=== PATIENT | female | born 1970 ===

== ENCOUNTER 2016-06-15 18:48 | Emergency (ER) | payer OTHER ==
[2016-06-15 18:54] VITALS: RESP 18; TEMP 98.1
--- NOTE | 2016-06-15 20:29 | C.PDOC ---
History Of Present Illness Patient is a 46 year old female who presents to the ER with a complaint of a constant non-productive cough that worsens at night. Patient also reports having a subjective fever, body ache, and sore throat. Patient states the cough is making the sore throat worse. Denies any nausea, vomiting, or diarrhea. Time Seen by Provider: 06/15/16 19:12 Chief Complaint (Nursing): Flu-like Symptoms History Per: Patient History/Exam Limitations: no limitations Onset/Duration Of Symptoms: Days (3) Current Symptoms Are (Timing): Still Present Location Of Pain: Throat, Diffuse Myalgias Associated Symptoms: Fever (Subjective), Sore Throat, Cough (Non-productive). denies: Nausea, Vomiting, Diarrhea Past Medical History Reviewed: Historical Data, Nursing Documentation, Vital Signs Vital Signs: Last Vital Signs Temp 98.1 F 06/15/16 18:50 Pulse 75 06/15/16 20:35 Resp 18 06/15/16 20:35 BP 122/71 06/15/16 20:35 Pulse Ox 100 06/15/16 21:16 Family History: States: Unknown Family Hx - Social History Hx Alcohol Use: No Hx Substance Use: No - Immunization History Hx Tetanus Toxoid Vaccination: Yes Hx Influenza Vaccination: Yes Hx Pneumococcal Vaccination: No Review Of Systems Constitutional: Positive for: Fever ENT: Positive for: Other (Sore throat) Respiratory: Positive for: Cough (non-productive) Gastrointestinal: Negative for: Nausea, Vomiting, Diarrhea Musculoskeletal: Positive for: Other (Body aches) Physical Exam - Physical Exam Appears: Well, Non-toxic Skin: Normal Color, Warm, Dry, No Rash Head: Atraumatic, Normacephalic Eye(s): bilateral: Normal Inspection Ear(s): Bilateral: Normal Oral Mucosa: Moist Tongue: Normal Appearing Throat: Normal Neck: Normal, Supple Chest: Symmetrical Cardiovascular: Rhythm Regular, No Friction Rub, No Murmur Respiratory: Normal Breath Sounds, No Rales, No Rhonchi, No Stridor, No Wheezing Gastrointestinal/Abdominal: Soft, No Tenderness Back: Normal Inspection, No CVA Tenderness Extremity: Normal ROM, No Swelling Neurological/Psych: Oriented x3, Normal Speech, Normal Cognition Gait: Steady ED Course And Treatment O2 Sat by Pulse Oximetry: 100 (Room air) Pulse Ox Interpretation: Normal Medical Decision Making Medical Decision Making: Appears well, will be discharged home. Disposition - Disposition Referrals: [facility] at [facility] [Outside] Disposition: HOME/ ROUTINE Disposition Time: 20:27 Condition: GOOD Additional Instructions: Follow up with the medical doctor within 1-2 days without fail. return if worsened. Prescriptions: Loratadine [Claritin] 10 mg PO DAILY #10 tab Ibuprofen [Motrin] 600 mg PO TID #21 tab Benzonatate [Tessalon Perles] 200 mg PO TID PRN #21 sgl PRN Reason: Cough predniSONE [Prednisone] 20 mg PO BID #10 tab Instructions: Acute Bronchitis (ED) Print Language: BELARUSIAN - Clinical Impression Clinical Impression: Acute bronchitis - Scribe Statement The provider has reviewed the documentation as recorded by the Scribrosa isela Severino All medical record entries made by the Edelibrosa isela were at my direction and personally dictated by me. I have reviewed the chart and agree that the record accurately reflects my personal performance of the history, physical exam, medical decision making, and the department course for this patient. I have also personally directed, reviewed, and agree with the discharge instructions and disposition.
[2016-06-15 20:35] VITALS: BP 122/71; PULSE 75
[2016-06-15 21:09] VITALS: O2SAT 100
== END 2016-06-15 20:36 | disposition home or self-care (01) ==
LOC: C.ER 18:48
DX: J20.9 Acute bronchitis, unspecified (principal)

== ENCOUNTER 2018-02-04 00:07 | Emergency (ER) | payer OTHER ==
[2018-02-04 00:20] VITALS: RESP 18; TEMP 97.9
[2018-02-04] MEDS ORDERED: DiphenhydrAMINE 50 mg/ml Inj IM STA (00:35)
[2018-02-04] MEDS ORDERED: DiphenhydrAMINE 50 mg/ml Inj ONE (00:48)
--- NOTE | 2018-02-04 01:17 | C.PDOC ---
History Of Present Illness 47 year old female presents to the ER with a complaint of a diffuse puritic rash for the past 2 days. She tried anti-itch cream at home with no relief. Denies known allergens, fever, or recent travel. Time Seen by Provider: 02/04/18 00:24 Chief Complaint (Nursing): Abnormal Skin Integrity History Per: Patient History/Exam Limitations: no limitations Onset/Duration Of Symptoms: Days (2) Current Symptoms Are (Timing): Still Present Quality Of Symptoms: Itching Recent travel outside of the [place]: No Past Medical History Reviewed: Historical Data, Nursing Documentation, Vital Signs Vital Signs: Last Vital Signs Temp 97.9 F 02/04/18 00:19 Pulse 70 02/04/18 00:19 Resp 18 02/04/18 00:19 BP 119/74 02/04/18 00:19 Pulse Ox 100 02/04/18 00:19 Family History: States: Unknown Family Hx - Social History Hx Alcohol Use: No Hx Substance Use: No - Immunization History Hx Tetanus Toxoid Vaccination: Yes Hx Influenza Vaccination: Yes Hx Pneumococcal Vaccination: No Review Of Systems Constitutional: Negative for: Fever, Chills ENT: Negative for: Mouth Swelling, Throat Swelling Cardiovascular: Negative for: Chest Pain, Palpitations Respiratory: Negative for: Cough, Wheezing Skin: Positive for: Rash Physical Exam - Physical Exam Appears: Non-toxic Skin: Warm, Dry, Rash (Diffuse erythematous with scattered hives. No tracks, excoriations, or vesicles.) Head: Atraumatic, Normacephalic Eye(s): bilateral: Normal Inspection Ear(s): Bilateral: Normal Nose: Normal Oral Mucosa: Moist Tongue: Normal Appearing, No Swelling Lips: Normal Appearing, No Swelling Throat: Normal, No Other (Swelling) Neck: Normal, Supple, No Other (Swelling) Chest: Symmetrical, No Tenderness Cardiovascular: Rhythm Regular Respiratory: Normal Breath Sounds, No Accessory Muscle Use, No Wheezing Neurological/Psych: Oriented x3, Normal Speech ED Course And Treatment O2 Sat by Pulse Oximetry: 100 (Room air) Pulse Ox Interpretation: Normal Progress Note: Benadryl and prednisone administered. Patient reports improvement of symptoms, she is resting comfortably in the ER in no acute distress, vitals are stable, will discharge home with Rx and instructions to follow up with PMD or return if symptoms worsen. Disposition Counseled Patient/Family Regarding: Diagnosis, Need For Followup, Rx Given - Disposition Referrals: [facility] [Outside] Disposition: HOME/ ROUTINE Disposition Time: 01:14 Condition: STABLE Additional Instructions: Please follow up in clinic Take medications as directed Return to ER if worse Prescriptions: DiphenhydrAMINE [Benadryl] 50 mg PO Q6H #20 cap predniSONE [Prednisone] 40 mg PO DAILY #8 tab Instructions: Hives (DC) Forms: [employer] (Maltese) Print Language: NICARAGUAN - Clinical Impression Clinical Impression: Allergic urticaria - PA / HERB DOCTOR / Resident Statement MD/DO has reviewed & agrees with the documentation as recorded. - Scribe Statement The provider has reviewed the documentation as recorded by the Scribrosa isela Severino All medical record entries made by the Edelibrosa isela were at my direction and personally dictated by me. I have reviewed the chart and agree that the record accurately reflects my personal performance of the history, physical exam, medic al decision making, and the department course for this patient. I have also personally directed, reviewed, and agree with the discharge instructions and disposition.
[2018-02-04 02:12] VITALS: BP 128/86; PULSE 88
[2018-02-04 04:15] VITALS: O2SAT 100
== END 2018-02-04 01:45 | disposition home or self-care (01) ==
LOC: C.ER 00:07
DX: L50.0 Allergic urticaria (principal)
CPT/HCPCS: 96372; 99283; J1200

== ENCOUNTER 2018-06-18 10:20 | Emergency (ER) | payer SELFPAY ==
[2018-06-18 10:30] VITALS: BP 111/68; PULSE 70; RESP 18; TEMP 98.1; O2SAT 100
--- NOTE | 2018-06-18 10:43 | C.PDOC ---
History Of Present Illness 48 y/o female presents to the ER complaining of runny nose, non-productive cough, itchy throat, and itchy diffuse rash which has been present since last night.Patient states that she has history of seasonal and food allergies. Denies having sensation of throat closing up, lip/tongue swelling, CP, SOB, unusual food intake, and sick contacts at home. Time Seen by Provider: 06/18/18 10:32 Chief Complaint (Nursing): Cough, Cold, Congestion History Per: Patient History/Exam Limitations: no limitations Onset/Duration Of Symptoms: Days Current Symptoms Are (Timing): Still Present Severity: Moderate Past Medical History Reviewed: Historical Data, Nursing Documentation, Vital Signs Vital Signs: Last Vital Signs Temp 98.1 F 06/18/18 10:26 Pulse 70 06/18/18 10:26 Resp 18 06/18/18 10:26 BP 111/68 06/18/18 10:26 Pulse Ox 100 06/18/18 10:26 - Medical History PMH: No Chronic Diseases Family History: States: No Known Family Hx - Social History Hx Alcohol Use: No Hx Substance Use: No - Immunization History Hx Tetanus Toxoid Vaccination: Yes Hx Influenza Vaccination: Yes Hx Pneumococcal Vaccination: No Review Of Systems Except As Marked, All Systems Reviewed And Found Negative. Constitutional: Negative for: Fever, Chills ENT: Positive for: Nose Discharge (runny nose), Other (itchy throat) Cardiovascular: Negative for: Chest Pain Respiratory: Positive for: Cough (non-productive cough). Negative for: Shortness of Breath Skin: Positive for: Rash Physical Exam - Physical Exam Appears: Other (speaking in full sentences, coughing occasionally) Skin: Warm, Dry, Rash (mild maculopapular rash with blanching on back and arms, no vesicles) Head: Atraumatic, Normacephalic Eye(s): bilateral: Normal Inspection Ear(s): Bilateral: Normal Nose: Other (rhinorrhea) Oral Mucosa: Moist Tongue: Normal Appearing, No Swelling Lips: Normal Appearing, No Swelling Throat: Normal, No Erythema, No Exudate Neck: Supple Chest: Symmetrical Cardiovascular: Rhythm Regular Respiratory: Normal Breath Sounds, No Rales, No Rhonchi, No Wheezing Neurological/Psych: Oriented x3, Normal Speech ED Course And Treatment O2 Sat by Pulse Oximetry: 100 (RA) Pulse Ox Interpretation: Normal Progress Note: Patient treated with Benadryl PO and Prednisone PO. Disposition Counseled Patient/Family Regarding: Diagnosis, Need For Followup, Rx Given - Disposition Referrals: [facility] [Outside] Disposition: HOME/ ROUTINE Disposition Time: 10:50 Condition: STABLE Additional Instructions: FOLLOW UP WITH YOUR DOCTOR/CLINIC IN 1-2 DAYS USE MEDICATIONS DIRECTED RETURN TO EMERGENCY ROOM IF YOUR SYMPTOMS BECOME WORSE SEGUIR CON MICHAEL MDICO / CLNICA EN 1-2 SONG UTILICE MEDICAMENTOS SAMM SE DIRIGE VUELVA A LA VENECIA DE EMERGENCIA SI JENNY SNTOMAS SE HACEN PEOR Prescriptions: Loratadine [Claritin] 10 mg PO DAILY PRN #30 tab PRN Reason: Itching / Pruritus Mometasone Furoate [Nasonex] 0.05 mg NS DAILY #1 bottle predniSONE [predniSONE Tab] 40 mg PO DAILY #6 tab Instructions: Seasonal Allergies (DC) Forms: [employer] (Mauritian), Work Excuse Print Language: DANISH - Clinical Impression Clinical Impression: Seasonal allergies, Seasonal allergic rhinitis - Scribe Statement The provider has reviewed the documentation as recorded by the Scribe Akilah Vazquez Provider Attestation: All medical record entries made by the Scribe were at my direction and personally dictated by me. I have reviewed the chart and agree that the record accurately reflects my personal performance of the history, physical exam, medical decision making, and the department course for this patient. I have also personally directed, reviewed, and agree with the discharge instructions and disposition.
== END 2018-06-18 11:11 | disposition home or self-care (01) ==
LOC: C.ER 10:20
DX: J30.2 Other seasonal allergic rhinitis (principal)

== ENCOUNTER 2018-07-20 15:21 | Emergency (ER) | payer OTHER ==
[2018-07-20 15:55] VITALS: O2SAT 100
--- NOTE | 2018-07-20 17:33 | C.PDOC ---
History Of Present Illness 48-year-old female presents to the ED after sustaining a fall at work prior to arrival. Patient states she fell after she missed a chair while trying to sit down, and complains of pain to her upper and lower back and right hip. Patient admits to hitting her head and reports questionable loss of consciousness. Patient denies nausea, vomiting, urinary/bowel incontinence, extremity numbness/weakness. Time Seen by Provider: 07/20/18 16:41 Chief Complaint (Nursing): Back Pain History Per: Patient History/Exam Limitations: no limitations Onset/Duration Of Symptoms: Hrs Current Symptoms Are (Timing): Still Present Quality Of Discomfort: "Pain" Associated Symptoms: denies: Incontinence, New Weakness, New Numbness Additional History Per: Patient Past Medical History Reviewed: Historical Data, Nursing Documentation, Vital Signs Vital Signs: Last Vital Signs Temp 99 F 07/20/18 15:50 Pulse 86 07/20/18 15:50 Resp 20 07/20/18 15:50 BP 116/80 07/20/18 15:50 Pulse Ox 100 07/20/18 15:50 Primary Care Provider: FAMILY PROVIDER,NO - Medical History PMH: No Chronic Diseases Surgical History: No Surg Hx Family History: States: Unknown Family Hx - Social History Hx Alcohol Use: No Hx Substance Use: No - Immunization History Hx Tetanus Toxoid Vaccination: Yes Hx Influenza Vaccination: Yes Hx Pneumococcal Vaccination: No Review Of Systems Gastrointestinal: Negative for: Nausea, Vomiting Musculoskeletal: Positive for: Back Pain (upper and lower ), Other (right hip pain ) Neurological: Positive for: Other (+head injury, questionable LOC ) Physical Exam - Physical Exam Appears: Non-toxic, No Acute Distress Skin: Normal Color, Warm, Dry Head: Atraumatic, Normacephalic Oral Mucosa: Moist Neck: Supple Chest: Symmetrical, No Deformity, No Tenderness Cardiovascular: Rhythm Regular, No Murmur Respiratory: Normal Breath Sounds, No Rales, No Rhonchi, No Wheezing Gastrointestinal/Abdominal: Soft, No Tenderness, No Guarding, No Rebound Back: Paraspinal Tenderness (right-sided, lumbar and thoracic ) Extremity: Normal ROM, Capillary Refill (less than 2 seconds ) Neurological/Psych: Oriented x3, Normal Speech, Normal Motor, Normal Sensation ED Course And Treatment O2 Sat by Pulse Oximetry: 100 (on RA) Pulse Ox Interpretation: Normal Medical Decision Making Medical Decision Making: Progress: Hip XR, LS Spine AP/LAT, and CT Head ordered and reviewed. Tylenol PO given. xrt neg head ct neg. pain improved. pt in nad in er. cleared for dc. Disposition - Disposition Disposition: HOME/ ROUTINE Disposition Time: 19:00 Condition: STABLE Additional Instructions: return to er with worsening. Prescriptions: Naproxen [Naprosyn] 500 mg PO BID PRN #14 tablet PRN Reason: Pain, Mild (1-3) Instructions: Low Back Pain (DC), Preventing Falls, Head Injury Observation (DC) Forms: [employer] (Lebanese), Work Excuse - Clinical Impression Clinical Impression: Low back pain, Fall - Scribe Statement The provider has reviewed the documentation as recorded by the Scribe (Mila Palacios) Provider Attestation: All medical record entries made by the Scribe were at my direction and personally dictated by me. I have reviewed the chart and agree that the record accurately reflects my personal performance of the history, physical exam, medical decision making, and the department course for this patient. I have also personally directed, reviewed, and agree with the discharge instructions and disposition.
--- NOTE | 2018-07-20 18:05 | CT ---
Date of service: 07/20/2018 PROCEDURE: CT HEAD WITHOUT CONTRAST. HISTORY: trauma COMPARISON: None available TECHNIQUE: Axial computed tomography images were obtained through the head/brain without intravenous contrast. Radiation dose: Total exam DLP = 1054.31 mGy-cm. This CT exam was performed using one or more of the following dose reduction techniques: Automated exposure control, adjustment of the mA and/or kV according to patient size, and/or use of iterative reconstruction technique. FINDINGS: HEMORRHAGE: No intracranial hemorrhage. BRAIN: No mass effect or edema. The damon-white matter differentiation appears intact. Please note that MRI with diffusion imaging is more sensitive in the detection of acute ischemic event. VENTRICLES: No hydrocephalus. CALVARIUM: Unremarkable. PARANASAL SINUSES: Unremarkable as visualized. No significant inflammatory changes. MASTOID AIR CELLS: Unremarkable as visualized. No inflammatory changes. OTHER FINDINGS: None. IMPRESSION: No acute intracranial pathology identified.
--- NOTE | 2018-07-20 18:49 | RAD ---
Date of service: 07/20/2018 PROCEDURE: Radiographs of the Chest and Right Ribs. HISTORY: trauma COMPARISON: None available. TECHNIQUE: Frontal radiograph of the chest and multiple oblique radiographs of the right ribs were obtained. 4 views obtained. FINDINGS: RIGHT RIBS: No fracture or focal lesion visualized. LUNGS: Clear. PLEURA: No pneumothorax or pleural fluid. CARDIOVASCULAR: Normal cardiac size. No pulmonary vascular congestion. No aortic atherosclerotic calcification present OTHER FINDINGS: None. IMPRESSION: Unremarkable radiographs of the chest and right ribs. No right rib fracture.
--- NOTE | 2018-07-20 18:50 | RAD ---
Date of service: 07/20/2018 PROCEDURE: Pelvis and right hip HISTORY: trauma COMPARISON: TECHNIQUE: Three views. FINDINGS: There are no osseous abnormalities to suggest fracture. The pelvic ring is intact. Preserved femoral-acetabular relationship. Negative study for protrusio, subluxation or dislocation. Degenerative changes: None IMPRESSION: No acute findings related to/ accounting for the clinical presentation.
[2018-07-20 19:51] VITALS: BP 131/87; PULSE 76; RESP 18; TEMP 98.2
--- NOTE | 2018-07-21 07:48 | RAD ---
Date of service: 07/20/2018 PROCEDURE: Radiographs of the Lumbar Spine. HISTORY: trauma COMPARISON: No prior. TECHNIQUE: Three views obtained. FINDINGS: BONES: Normal alignment. No listhesis. No fracture. DISC SPACES: Unremarkable. OTHER FINDINGS: Stool retention IMPRESSION: Stool retention; otherwise unremarkable radiographs of the lumbar spine.
== END 2018-07-20 19:51 | disposition home or self-care (01) ==
LOC: C.ER 15:21
DX: M54.5 Low back pain (principal)